=== PATIENT | female | born 1975 | race Caucasian/White ===

== ENCOUNTER 2017-07-27 09:21 | Emergency (ER) | payer OTHER ==
[~2017-07-27] VITALS: Ht 160 cm; Wt 136.1 kg
[~2017-07-27 09:21] MED LIST: ASPI81TA31 PO; IBUP-1958 PO; METO25TA50 PO
[2017-07-27] MEDS ORDERED: AZITHROMYCIN 250 MG TABLET ONE (09:36)
[2017-07-27] MEDS ORDERED: predniSONE 20 MG TABLET ONE (09:37)
[2017-07-27] MEDS: AZITHROMYCIN 250 MG TABLET PO ONE (09:42)
[2017-07-27] MEDS: predniSONE 20 MG TABLET PO ONE (09:42)
--- NOTE | 2017-07-27 09:42 | NUR ---
MSE COMOPLETED, MEDS ADMINISTERED, PT D/C'D HOME, ACI/RX X2 GIVEN. PT AMBULATED W/O DIFF/TOOK ALL BELONGINGS.
[2017-07-27 09:43] VITALS: BP 165/94
== END 2017-07-27 09:42 | disposition home or self-care (01) ==
LOC: ER 09:21
DX: J02.9 Acute pharyngitis, unspecified (principal); Z79.82 Long term (current) use of aspirin
CPT/HCPCS: A4663; J7512; Q0144

== ENCOUNTER 2017-10-11 17:06 | Inpatient (IN) | payer OTHER ==
[~2017-10-11] VITALS: Ht 160 cm; Wt 136.5 kg
[2017-10-11] MEDS ORDERED: IV NORMAL SALINE 1000 ML BAG IV ONE (17:45)
[2017-10-11 18:00] LABS: BASOPHILS # (AUTO) 0.1 K/uL (0.0-8.0); BASOPHILS % (AUTO) 0.6 % (0.0-2.0); EOSINOPHILS # (AUTO) 0.2 K/uL (0.0-0.7); EOSINOPHILS % (AUTO) 1.8 % (0.0-7.0); HEMATOCRIT 44.1 % (31.2-41.9); HEMOGLOBIN 14.9 g/dL (10.9-14.3); LYMPHOCYTES # (AUTO) 1.2 K/uL (20.0-40.0); MEAN CORPUSCULAR HEMOGLOBIN 27.9 uug (24.7-32.8); MEAN CORPUSCULAR HGB CONC 34 g/dL (32.3-35.6); MEAN CORPUSCULAR VOLUME 82.5 fL (75.5-95.3); MONOCYTES # (AUTO) 0.7 K/uL (2.0-10.0); MONOCYTES % (AUTO) 7.9 % (0.0-11.0); NEUTROPHILS % (AUTO) 76.7 % (38.5-71.5); PLATELET COUNT (AUTO) 247 K/uL (179-408); RED BLOOD CELL COUNT(AUTO) 5.34 MIL/uL (3.63-4.92); WHITE BLOOD COUNT (AUTO) 9.2 K/uL (3.8-11.8)
[2017-10-11 18:15] LABS: BILIRUBIN,DIRECT 0.1 mg/dL (0.0-0.2); BILIRUBIN,TOTAL 0.5 mg/dL (0.2-1.0); POTASSIUM 3.8 mmol/L (3.5-5.1); TOTAL PROTEIN, SERUM 8.6 g/dL (6.4-8.2)
[2017-10-11] MEDS ORDERED: IV NS 1000 ML 1,000 ML IV PRN (19:09)
[2017-10-11] MEDS ORDERED: MAGNESIUM HYDROXIDE 30 ML LIQUID UDC PO PRN (19:15)
[2017-10-11] MEDS ORDERED: HYDROCODONE/APAP 10-325 MG TABLET PO PRN (19:15)
[2017-10-11] MEDS ORDERED: ASPIRIN 325 MG TABLET PO ONE (19:15)
[2017-10-11] MEDS ORDERED: HYDROCODONE/APAP 5-325MG TABLET PO PRN (19:15)
[2017-10-11] MEDS ORDERED: ASPIRIN 325 MG TABLET ONE (19:24)
[2017-10-11] MEDS ORDERED: LORAZEPAM 2 MG/1 ML VIAL IV STA (21:15)
[2017-10-11] MEDS ORDERED: LORAZEPAM 2 MG/1 ML VIAL ONE (21:24)
[2017-10-11 21:39] VITALS: BP 120/103
[2017-10-12] VITALS: BP 116/77
[2017-10-12] MEDS: ACETAMINOPHEN 325 MG TABLET PO PRN ×3 (02:10→20:11)
[2017-10-12 04:00] VITALS: BP 137/88
[2017-10-12] MEDS: PANTOPRAZOLE SODIUM 40 MG TABLET.DR PO SCH (06:06)
[2017-10-12 06:47] LABS: BASOPHILS % (AUTO) 0.5 % (0.0-2.0); EOSINOPHILS # (AUTO) 0.2 K/uL (0.0-0.7); EOSINOPHILS % (AUTO) 3.5 % (0.0-7.0); HEMATOCRIT 40.7 % (31.2-41.9); HEMOGLOBIN 13.6 g/dL (10.9-14.3); LYMPHOCYTES % (AUTO) 15.1 % (20.5-51.5); MEAN CORPUSCULAR HEMOGLOBIN 28.1 uug (24.7-32.8); MEAN CORPUSCULAR HGB CONC 34 g/dL (32.3-35.6); MEAN CORPUSCULAR VOLUME 83.8 fL (75.5-95.3); MONOCYTES # (AUTO) 0.6 K/uL (2.0-10.0); MONOCYTES % (AUTO) 9.2 % (0.0-11.0); NEUTROPHILS # (AUTO) 4.8 K/uL (1.8-8.9); NEUTROPHILS % (AUTO) 71.7 % (38.5-71.5); PLATELET COUNT (AUTO) 198 K/uL (179-408); RED BLOOD CELL COUNT(AUTO) 4.86 MIL/uL (3.63-4.92); WHITE BLOOD COUNT (AUTO) 6.7 K/uL (3.8-11.8)
[2017-10-12 06:53] LABS: CREATININE 0.8 mg/dL (0.6-1.3); MAGNESIUM 1.8 mg/dL (1.8-2.4); PHOSPHOROUS 2.7 mg/dL (2.5-4.9); POTASSIUM 3.6 mmol/L (3.5-5.1)
[2017-10-12] MEDS: ASPIRIN 81 MG TAB.CHEW PO SCH (08:17)
[2017-10-12] MEDS: ONDANSETRON 4 MG/2 ML VIAL IV PRN ×2 (08:17→17:13)
[2017-10-12] MEDS: ENOXAPARIN SODIUM 40 MG/0.4 ML DISP.SYRIN SQ SCH (08:19)
[2017-10-12 11:38] VITALS: BP 132/74
[2017-10-12 15:07] VITALS: BP 124/65
[2017-10-12] MEDS: METFORMIN HCL 500 MG TABLET PO SCH (17:02)
[2017-10-12 20:00] VITALS: BP 137/89
[2017-10-12] MEDS ORDERED: ATORVASTATIN 20 MG TABLET PO SCH (21:00)
[2017-10-13 04:00] VITALS: BP 114/56
[2017-10-13] MEDS: PANTOPRAZOLE SODIUM 40 MG TABLET.DR PO SCH (06:47)
[2017-10-13] MEDS: ASPIRIN 81 MG TAB.CHEW PO SCH (08:09)
[2017-10-13] MEDS: METFORMIN HCL 500 MG TABLET PO SCH (08:09)
[2017-10-13 08:11] VITALS: BP 124/78
[2017-10-13] MEDS: ENOXAPARIN SODIUM 40 MG/0.4 ML DISP.SYRIN SQ SCH (08:16)
[2017-10-13] MEDS ORDERED: LISINOPRIL 5 MG TABLET PO SCH (09:00)
[2017-10-13] MEDS: ACETAMINOPHEN 325 MG TABLET PO PRN (09:47)
== END 2017-10-13 10:40 | disposition home or self-care (01) | DRG 203 ==
LOC: ER 17:06 → TELE 21:11 → MED 10-12 16:20
PROVIDERS: ADMIT Internal Medicine; ATTEND Nurse Practitioner Acute Care
DX: M94.0 Chondrocostal junction syndrome [Tietze] (principal); E88.81 Metabolic syndrome and other insulin resistance; E44.0 Moderate protein-calorie malnutrition; K76.0 Fatty (change of) liver, not elsewhere classified; E11.65 Type 2 diabetes mellitus with hyperglycemia; E87.1 Hypo-osmolality and hyponatremia; R16.0 Hepatomegaly, not elsewhere classified; Z79.82 Long term (current) use of aspirin; Z68.43 Body mass index [BMI] 50.0-59.9, adult; E66.01 Morbid (severe) obesity due to excess calories; Z90.49 Acquired absence of other specified parts of digestive tract; Z71.3 Dietary counseling and surveillance; M47.896 Other spondylosis, lumbar region; K57.30 Diverticulosis of large intestine without perforation or abscess without bleeding; Z79.899 Other long term (current) drug therapy; E78.5 Hyperlipidemia, unspecified; I10 Essential (primary) hypertension; R00.0 Tachycardia, unspecified; K27.9 Peptic ulcer, site unspecified, unspecified as acute or chronic, without hemorrhage or perforation; R74.0 Nonspecific elevation of levels of transaminase and lactic acid dehydrogenase [LDH]; R07.89 Other chest pain
CPT/HCPCS: 36415; 70030-TC; 71045; 76700; 83690; 83735; 84100; 84443; 84703; 85025; 85610; 85730; 93005; 93307; A4663; J1650; J2060; J2405; J7030

== ENCOUNTER 2018-11-18 03:11 | Emergency (ER) | payer OTHER ==
[~2018-11-18] VITALS: Ht 160 cm; Wt 138.3 kg
[~2018-11-18 03:11] MED LIST changes: -IBUP-1958 PO; -METO25TA50 PO
--- NOTE | 2018-11-18 03:30 | NUR ---
Patient ambulated with stable gait. Speech clear, speaks in complete sentences. A/Ox4. Patient came for c/o n/v/d since 0200 and is not able to go back to sleep. Respiratory even and unlabored, no cough no sob. No cardiovascular distress noted. No distress. Patient in bed at lowest position, sr upx2, call light within reach. Fall precautions implemented per protcol.
[2018-11-18] MEDS ORDERED: ONDANSETRON ODT 4 MG TAB.RAPDIS ONE (03:42)
[2018-11-18] MEDS ORDERED: DICYCLOMINE HCL LIQ 10 MG/5 ML UDC ONE ×2 (03:42→04:03)
[2018-11-18 03:45] LABS: BASOPHILS # (AUTO) 0.1 K/uL (0.0-8.0); BASOPHILS % (AUTO) 0.8 % (0.0-2.0); EOSINOPHILS # (AUTO) 0.2 K/uL (0.0-0.7); EOSINOPHILS % (AUTO) 1.8 % (0.0-7.0); HEMATOCRIT 41.6 % (31.2-41.9); HEMOGLOBIN 13.8 g/dL (10.9-14.3); LYMPHOCYTES # (AUTO) 1.7 K/uL (20.0-40.0); LYMPHOCYTES % (AUTO) 16.4 % (20.5-51.5); MEAN CORPUSCULAR HEMOGLOBIN 27.1 uug (24.7-32.8); MEAN CORPUSCULAR HGB CONC 33 g/dL (32.3-35.6); MEAN CORPUSCULAR VOLUME 81.7 fL (75.5-95.3); MONOCYTES # (AUTO) 0.9 K/uL (2.0-10.0); MONOCYTES % (AUTO) 8.9 % (0.0-11.0); NEUTROPHILS # (AUTO) 7.5 K/uL (1.8-8.9); NEUTROPHILS % (AUTO) 72.1 % (38.5-71.5); PLATELET COUNT (AUTO) 233 K/uL (179-408); RED BLOOD CELL COUNT(AUTO) 5.08 MIL/uL (3.63-4.92); WHITE BLOOD COUNT (AUTO) 10.4 K/uL (3.8-11.8)
[2018-11-18] MEDS ORDERED: ONDANSETRON ODT 4 MG TAB.RAPDIS SL ONE (03:45)
[2018-11-18] MEDS ORDERED: DICYCLOMINE HCL 10 MG CAPSULE PO SCH (03:45)
[2018-11-18] MEDS ORDERED: DICYCLOMINE HCL LIQ 10 MG/5 ML UDC PO ONE (03:45)
[2018-11-18 03:50] LABS: *URINE HCG, QUAL NEGATIVE (NEGATIVE)
[2018-11-18 03:57] LABS: BILIRUBIN,DIRECT 0.1 mg/dL (0.0-0.2); BILIRUBIN,TOTAL 0.2 mg/dL (0.2-1.0); CREATININE 0.7 mg/dL (0.6-1.3); POTASSIUM 3.9 mmol/L (3.5-5.1); TOTAL PROTEIN, SERUM 7.8 g/dL (6.4-8.2)
--- NOTE | 2018-11-18 05:05 | NUR ---
Patient discharged to home in stable conditon. Written and verbal after care instructions given. Patient verbalizes understanding of instructions. Patient ambulated with stable gait.
[2018-11-18 05:06] VITALS: BP 150/86
[2018-11-19] MEDS ORDERED: LOSARTAN POTASSIUM 50 MG PO (08:43)
[2018-11-19] MEDS ORDERED: JARDIANCE 10MG TABLET PO (08:43)
[2018-11-19] MEDS ORDERED: ATORVASTATIN 20 MG (08:43)
[2018-11-19] MEDS ORDERED: JANUMET (08:43)
[2018-11-19] MEDS ORDERED: SITA1TAB2 PO (08:52)
[2018-11-19] MEDS ORDERED: SITA1TAB6 PO (09:44)
== END 2018-11-18 05:07 | disposition home or self-care (01) ==
LOC: ER 03:15
DX: R10.9 Unspecified abdominal pain (principal); R11.10 Vomiting, unspecified; R19.7 Diarrhea, unspecified; E11.9 Type 2 diabetes mellitus without complications; Z79.82 Long term (current) use of aspirin
CPT/HCPCS: 36415; 84703; 85025; A4663; Q0162

== ENCOUNTER 2018-11-19 08:25 | Emergency (ER) | payer OTHER ==
[~2018-11-19] VITALS: Ht 160 cm; Wt 138.3 kg
--- NOTE | 2018-11-19 08:37 | NUR ---
Warm blanket & extra pillows provided. Comfort measures initiated.
[2018-11-19] MEDS ORDERED: ATORVASTATIN 20 MG (08:43)
[2018-11-19] MEDS ORDERED: JARDIANCE 10MG TABLET PO (08:43)
[2018-11-19] MEDS ORDERED: LOSARTAN POTASSIUM 50 MG PO (08:43)
[2018-11-19] MEDS ORDERED: JANUMET (08:43)
--- NOTE | 2018-11-19 08:45 | NUR ---
PT A/OX4, PRESENTS TO THE ER C/O N/V/D X 3 DAYS. PT WAS SEEN IN THIS ER AND DIAGNOSED W/ GASTROENTERITIS. PT REPORTS PERSISTENT N/V/D DESPITE IMODIUM, ZOFRAN, AND BENTYL. PT REPORTS ABD PAIN THAT IS NON-PROVOKED, CRAMPING IN QUALITY, DOES NOT RADIATE, CONSTANT. VS WNL. PT DENIES C/P, SOB, DIZZINESS, HEADACHE.
[2018-11-19] MEDS ORDERED: SITA1TAB2 PO (08:52)
--- NOTE | 2018-11-19 08:56 | NUR ---
LORELEI VARGAS AT BEDSIDE FOR MSE.
[2018-11-19] MEDS ORDERED: HYDROMORPHONE 1 MG/1 ML DISP.SYRIN IV ONE (09:00)
[2018-11-19] MEDS ORDERED: ONDANSETRON 4 MG/2 ML VIAL IV ONE (09:00)
[2018-11-19] MEDS ORDERED: IV NORMAL SALINE 1000 ML BAG IV ONE (09:00)
[2018-11-19] MEDS ORDERED: ONDANSETRON 4 MG/2 ML VIAL ONE ×2 (09:07→10:10)
[2018-11-19] MEDS ORDERED: HYDROMORPHONE 1 MG/1 ML DISP.SYRIN ONE (09:07)
--- NOTE | 2018-11-19 09:13 | NUR ---
PT TAKEN TO RADIOLOGY FOR CT SCAN.
--- NOTE | 2018-11-19 09:28 | NUR ---
PT BACK IN ER FROM RADIOLOGY.
[2018-11-19] MEDS ORDERED: SITA1TAB6 PO (09:44)
[2018-11-19] MEDS ORDERED: CIPROFLOXACIN HCL 250 MG TABLET ONE (10:10)
[2018-11-19] MEDS ORDERED: CIPROFLOXACIN HCL 250 MG TABLET PO ONE (10:15)
[2018-11-19] MEDS ORDERED: ONDANSETRON ODT 4 MG TAB.RAPDIS SL ONE (10:15)
--- NOTE | 2018-11-19 10:36 | NUR ---
Patient discharged to home in stable conditon. Written and verbal after care instructions given. Patient verbalizes understanding of instructions. ALL BELONGINGS W/ PT. PT SELF-AMBULATED W/O DIFFICULTY. 20G IV ACCESS IN LAC REMOVED PRIOR TO D/C - INNER CANNULA INTACT. PT WILL BE DRIVEN HOME BY SON IN PRIVATE VEHICLE.
[2018-11-19 10:37] VITALS: BP 145/85
== END 2018-11-19 10:39 | disposition home or self-care (01) ==
LOC: ER 08:25
DX: K52.9 Noninfective gastroenteritis and colitis, unspecified (principal); I10 Essential (primary) hypertension; E11.9 Type 2 diabetes mellitus without complications; Z79.82 Long term (current) use of aspirin; Z79.899 Other long term (current) drug therapy
CPT/HCPCS: 74176; 96361; 96374; 96375; 99284; J1170; J2405 ×2; A4663; J7030

== ENCOUNTER 2021-10-24 17:30 | Emergency (ER) | payer OTHER ==
[~2021-10-24] VITALS: Ht 160 cm; Wt 129.7 kg
[~2021-10-24 17:30] MED LIST changes: +JARDIANCE 10MG TABLET PO; +LOSARTAN POTASSIUM 50 MG PO; +SITA1TAB6 PO
--- NOTE | 2021-10-24 18:07 | NUR ---
Dr Nava at the bedside for MSE.
[2021-10-24] MEDS ORDERED: LISINOPRIL 10 MG TABLET ONE (18:15)
[2021-10-24] MEDS ORDERED: LISINOPRIL 10 MG TABLET PO ONE (18:15)
[2021-10-24 18:50] VITALS: BP 146/96
--- NOTE | 2021-10-24 18:50 | NUR ---
Patient discharged to home in stable condition. Written and verbal after care instructions given. Patient verbalizes understanding of instructions. Stressed follow up or return to ER for worsening s/s.
== END 2021-10-24 18:51 | disposition home or self-care (01) ==
LOC: ER 17:33
DX: M25.562 Pain in left knee (principal); R00.0 Tachycardia, unspecified; E66.9 Obesity, unspecified; Z68.43 Body mass index [BMI] 50.0-59.9, adult; E78.5 Hyperlipidemia, unspecified
CPT/HCPCS: A4663